=== PATIENT | male | born 1990 | race Caucasian/White ===

== ENCOUNTER 2018-06-21 18:42 | Emergency (ER) | payer BC, SELFPAY ==
[2018-06-21 18:45] VITALS: BP 158/88; PULSE 80; RESP 16; TEMP 36.6; O2SAT 97
[2018-06-21] MEDS: Ciprofloxacin 500 MG TAB PO (19:19)
--- NOTE | 2018-06-21 19:21 | W.ED.GENAD ---
Discharge Plan Disposition Patient Disposition: HOME Condition: Good Discharge Details Chief Complaint: Laceration Clinical Impression: Puncture wound of plantar aspect of right foot Primary Care Provider: NONE,NONE ED Provider: Huy Lino Home Meds and New Rx's Prescriptions: New ciprofloxacin HCl [Cipro] 500 mg tablet 500 mg PO BID Qty: 9 RF: 0 Discharge Instructions Instructions: Puncture Wound (ED) Additional Instructions: Watch for any signs of infection and return immediately to the emergency department or other health care provider as needed for reassessment. Otherwise follow-up with your primary care provider when you return home as needed for recheck or if wound does not seem to be healing appropriately. Referrals: Primary Care Provider [Outside] (As needed for re-check) Discharge Data Discharge Date/Time-TO BE ENTERED AT DEPARTURE: 06/21/18 19:38 Medical Decision Making Patient presenting to the emergency department for chief complaint of plantar puncture wound as he stepped on a nail today. Patient states that it was a clean nail go through his shoe partly into his base of his right great toe. Patient denies any other injury or trauma. Patient is unsure of his last tetanus. Physical exam does show a puncture wound to the base of the right great toe on the plantar surface with no obvious foreign body noted. Wound was soaked and irrigated and still no visible foreign body. Plan is to give patient tetanus given that he does not know his last dose, and patient placed on Cipro 500 mg twice daily for 5 days for prophylactic coverage for pseudomonal infections. Patient encouraged to watch for any signs of infection return immediately if these occur. HPI General Mode of arrival: ambulatory. Date/Time Provider Initiated Documentation: 06/21/18 18:50. Limitations to Documentation: no limitations. Information obtained by: patient and RN notes reviewed. History of Present Illness 28 year old M presents to the emergency department with the chief complaint of Stepped on Nail, described as mild, with intensity rated at 2. Quality is described as aching, and is localized to the right and lower extremity. Patient started experiencing this hour(s) (2) and it has been constant. No relieving factors improve symptom(s), No exacerbating factors reported . Patient notes no other symptoms.. Patient did receive the following treatments prior to arrival, none Related Data Previous Rx's Medication Instructions Recorded ciprofloxacin HCl [Cipro] 500 mg PO BID #9 tab 06/21/18 Allergies Allergy/AdvReac Type Severity Reaction Status Date / Time No Known Allergies Allergy Unverified 06/21/18 18:51 General Stated Complaint: Laceration PETEY: 4 Review of Systems Constitutional Denies body ache(s), Denies chills and Denies fever(s) Cardiovascular Denies chest pain and Denies dyspnea Respiratory Denies dyspnea Integumentary/Breasts Reports as per HPI, Denies rash and Reports wounds Neurologic Denies sensory deficit PFSH Social History Smoking/Tobacco Use Status: Never Exam Const General: cooperative, no acute distress and not ill appearing Orientation: alert, awake and oriented x3 HENMT Mouth: moist mucous membranes Resp Effort & Inspection: normal respiratory effort, able to speak in complete sentences and no respiratory distress Skin General skin exam: no rashes or lesions noted Neuro General: alert, awake, oriented x3, moves all extremities and no focal motor deficits Sensory Exam: no sensory deficits noted Extrem Right lower extremity: foot Details: toes with normal ROM, no edema, puncture wound (Plantar surface of distal 1nd metatarsal), tendon exam Details: active flexion normal and active extension normal and motor-sensory exam Details: two point discrimination normal; no unusual warmth and no ecchymosis Course Vital Signs Temperature 36.6 C 06/21/18 18:45 Pulse 80 06/21/18 18:45 Respiratory Rate 16 06/21/18 18:45 Blood Pressure 158/88 H 06/21/18 18:45 Pulse Oximetry 97 06/21/18 18:45 Temperature 36.6 C 06/21/18 18:45 Pulse 80 06/21/18 18:45 Respiratory Rate 16 06/21/18 18:45 Blood Pressure 158/88 H 06/21/18 18:45 Pulse Oximetry 97 06/21/18 18:45
--- NOTE | 2018-06-21 19:24 | ED.GENADUL_ITS ---
Discharge Plan Disposition Patient Disposition: HOME Condition: Good Discharge Details Chief Complaint: Laceration Clinical Impression: Puncture wound of plantar aspect of right foot Primary Care Provider: NONE,NONE ED Provider: Huy Lino Home Meds and New Rx's Prescriptions: New ciprofloxacin HCl [Cipro] 500 mg tablet 500 mg PO BID Qty: 9 RF: 0 Discharge Instructions Instructions: Puncture Wound (ED) Additional Instructions: Watch for any signs of infection and return immediately to the emergency department or other health care provider as needed for reassessment. Otherwise follow-up with your primary care provider when you return home as needed for recheck or if wound does not seem to be healing appropriately. Referrals: Primary Care Provider [Outside] (As needed for re-check) Discharge Data Discharge Date/Time-TO BE ENTERED AT DEPARTURE: 06/21/18 19:38 Medical Decision Making Patient presenting to the emergency department for chief complaint of plantar puncture wound as he stepped on a nail today. Patient states that it was a clean nail go through his shoe partly into his base of his right great toe. Patient denies any other injury or trauma. Patient is unsure of his last tetanus. Physical exam does show a puncture wound to the base of the right great toe on the plantar surface with no obvious foreign body noted. Wound was soaked and irrigated and still no visible foreign body. Plan is to give patient tetanus given that he does not know his last dose, and patient placed on Cipro 500 mg twice daily for 5 days for prophylactic coverage for pseudomonal infections. Patient encouraged to watch for any signs of infection return immediately if these occur. HPI General Mode of arrival: ambulatory . Date/Time Provider Initiated Documentation: 06/21/18 18:50 . Limitations to Documentation: no limitations . Information obtained by: patient and RN notes reviewed . History of Present Illness 28 year old M presents to the emergency department with the chief complaint of Stepped on Nail, described as mild, with intensity rated at 2. Quality is described as aching, and is localized to the right and lower extremity. Patient started experiencing this hour(s) (2) and it has been constant. No relieving factors improve symptom(s), No exacerbating factors reported . Patient notes no other symptoms.. Patient did receive the following treatments prior to arrival, none Related Data Previous Rx's Medication Instructions Recorded ciprofloxacin HCl [Cipro] 500 mg PO BID #9 tab 06/21/18 Allergies Allergy/AdvReac Type Severity Reaction Status Date / Time No Known Allergies Allergy Unverified 06/21/18 18:51 General Stated Complaint: Laceration PETEY: 4 Review of Systems Constitutional Denies body ache(s), Denies chills and Denies fever(s) Cardiovascular Denies chest pain and Denies dyspnea Respiratory Denies dyspnea Integumentary/Breasts Reports as per HPI, Denies rash and Reports wounds Neurologic Denies sensory deficit PFSH Social History Smoking/Tobacco Use Status: Never Exam Const General: cooperative, no acute distress and not ill appearing Orientation: alert, awake and oriented x3 HENMT Mouth: moist mucous membranes Resp Effort & Inspection: normal respiratory effort, able to speak in complete sentences and no respiratory distress Skin General skin exam: no rashes or lesions noted Neuro General: alert, awake, oriented x3, moves all extremities and no focal motor deficits Sensory Exam: no sensory deficits noted Extrem Right lower extremity: foot Details: toes with normal ROM, no edema, puncture wound (Plantar surface of distal 1nd metatarsal), tendon exam Details: active flexion normal and active extension normal and motor-sensory exam Details: two point discrimination normal; no unusual warmth and no ecchymosis Course Vital Signs Temperature 36.6 C 06/21/18 18:45 Pulse 80 06/21/18 18:45 Respiratory Rate 16 06/21/18 18:45 Blood Pressure 158/88 H 06/21/18 18:45 Pulse Oximetry 97 06/21/18 18:45 Temperature 36.6 C 06/21/18 18:45 Pulse 80 06/21/18 18:45 Respiratory Rate 16 06/21/18 18:45 Blood Pressure 158/88 H 06/21/18 18:45 Pulse Oximetry 97 06/21/18 18:45
== END 2018-06-21 19:38 | disposition home or self-care (01) ==
PROVIDERS: Emergency Provider Nurse Practitioner Family
DX: S91.131A Puncture wound without foreign body of right great toe without damage to nail, initial encounter (principal); W45.0XXA Nail entering through skin, initial encounter
CPT/HCPCS: 90471; 99283